=== PATIENT | female | born 1960 | race American Indian/Alaskan Native ===

== ENCOUNTER 2017-10-03 06:30 | Emergency (ER) | payer OTHER ==
--- NOTE | 2017-10-03 07:17 | XRay Report ---
FINAL REPORT PROCEDURE: XR CHEST ROUTINE 2V TECHNIQUE: PA and lateral chest radiographs were obtained. CPT 65949 HISTORY: LYLE COMPARISON: No prior studies are available for comparison. FINDINGS: Heart: Normal. Mediastinum/Vessels: Normal. Lungs/Pleural space: Normal. Bony thorax: No acute osseous abnormality. Other: IMPRESSION: Normal examination.
[2017-10-03 07:23] LABS: Basophils % (Auto) 0.5 % (0.0-1.8); Eosinophils # (Auto) 0.1 K/mm3 (0.0-0.4); Eosinophils % (Auto) 2.2 % (0.0-4.3); Hematocrit 41.1 % (30.3-42.9); Lymphocytes # (Auto) 0.8 K/mm3 (1.2-5.4); Lymphocytes % (Auto) 12.8 % (13.4-35.0); Mean Corpuscular HGB Conc 32 % (30-34); Mean Corpuscular Volume 78 fl (79-97); Monocytes # (Auto) 0.6 K/mm3 (0.0-0.8); Monocytes % (Auto) 10.6 % (0.0-7.3); Platelet Count 116 K/mm3 (140-440); Red Blood Count 5.28 M/mm3 (3.65-5.03); Red Cell Distribution Width 16.4 % (13.2-15.2)
[2017-10-03] MEDS ORDERED: DUONEB *Not for PRN Use IH ONE (07:45)
[2017-10-03] MEDS ORDERED: ZESTRIL PO ONE (07:46)
[2017-10-03 07:48] LABS: BUN/Creatinine Ratio 15; Blood Urea Nitrogen 15 mg/dL (7-17); Calcium 9.7 mg/dL (8.4-10.2); Hemolysis Index 32
--- NOTE | 2017-10-03 07:54 | Emergency Department Report ---
ED General Adult HPI - General Chief complaint: Upper Respiratory Infection Stated complaint: UPPER RESP Time Seen by Provider: 10/03/17 07:00 Source: patient Mode of arrival: Ambulatory Limitations: No Limitations - History of Present Illness Initial comments: 56-year-old female admits to medical noncompliance. She states that she doesn' t have enough money to go to the doctor. She admits that she smokes daily and consumes alcohol. She came here today because she thinks she has bronchitis. He states that her breathing is a bit tight today. She has no inhaler. Her blood pressure was elevated. She ran out of her medications 2 months ago. She does not complain of jacqueline PND but states she likes to sleep in a chair. She states that she has had back pain for several years related to this. She also complains of situational depression without SI or HI. She's had no recent fever. She states that she is no longer coughing. She's had no pleuritic pain. She has not had chest pain per se but just some tightness in breathing. She does not have an inhaler. She's had no pleuritic pain no leg pain or swelling. -: Gradual, month(s), year(s) Consistency: intermittent Improves with: none Worsens with: none Associated Symptoms: cough (nonproductive cough), shortness of breath (dyspnea on exertion). denies: diaphoresis, fever/chills, headaches, loss of appetite, malaise, nausea/vomiting, rash, seizure Treatments Prior to Arrival: none - Related Data Previous Rx's Medication Instructions Recorded Last Taken Type Lisinopril/Hydrochlorothiazide 1 tab PO QDAY #60 tablet 08/01/14 Unknown Rx [Zestoretic 20-25 mg] Aspirin EC [Aspirin Enteric Coated 81 mg PO QDAY #30 tablet.dr 07/26/15 Unknown Rx TAB] Hydrochlorothiazide [HCTZ] 25 mg PO QDAY #30 tablet 07/26/15 Unknown Rx Lisinopril [Zestril TAB] 20 mg PO QDAY #30 tablet 07/26/15 Unknown Rx hydrALAZINE [Apresoline TAB] 50 mg PO Q12HR #60 tab 07/26/15 Unknown Rx Albuterol Sulfate [Ventolin HFA] 2 puff IH Q4H PRN #1 hfa.aer.ad 10/03/17 Unknown Rx Losartan/Hydrochlorothiazide 1 each PO QDAY #1 tablet 10/03/17 Unknown Rx [Losartan-Hctz 50-12.5 mg Tab] Allergies Allergy/AdvReac Type Severity Reaction Status Date / Time No Known Allergies Allergy Unverified 12/07/13 16:07 ED Review of Systems ROS: Stated complaint: UPPER RESP Other details as noted in HPI Constitutional: denies: chills, fever Eyes: denies: eye pain, eye discharge, vision change ENT: denies: ear pain, throat pain Respiratory: cough, shortness of breath, SOB with exertion, wheezing Cardiovascular: as per HPI. denies: chest pain, palpitations Endocrine: no symptoms reported Gastrointestinal: denies: abdominal pain, nausea, diarrhea Genitourinary: denies: urgency, dysuria, discharge Musculoskeletal: denies: back pain, joint swelling, arthralgia Skin: denies: rash, lesions Neurological: denies: headache, weakness, paresthesias Psychiatric: depression (states chronic without acute exacerbation). denies: anxiety Hematological/Lymphatic: denies: easy bleeding, easy bruising ED Past Medical Hx - Past Medical History Previous Medical History?: Yes Hx Hypertension: Yes Additional medical history: Previously abnormal EKG - Surgical History Past Surgical History?: Yes Additional Surgical History: left ankle surgery - Social History Smoking Status: Current Every Day Smoker Substance Use Type: None - Medications Home Medications: Home Medications Medication Instructions Recorded Confirmed Last Taken Type Lisinopril/Hydrochlorothiazide 1 tab PO QDAY #60 tablet 08/01/14 07/26/15 Unknown Rx [Zestoretic 20-25 mg] Aspirin EC [Aspirin Enteric Coated 81 mg PO QDAY #30 tablet.dr 07/26/15 Unknown Rx TAB] Hydrochlorothiazide [HCTZ] 25 mg PO QDAY #30 tablet 07/26/15 Unknown Rx Lisinopril [Zestril TAB] 20 mg PO QDAY #30 tablet 07/26/15 Unknown Rx hydrALAZINE [Apresoline TAB] 50 mg PO Q12HR #60 tab 07/26/15 Unknown Rx Albuterol Sulfate [Ventolin HFA] 2 puff IH Q4H PRN #1 hfa.aer.ad 10/03/17 Unknown Rx Losartan/Hydrochlorothiazide 1 each PO QDAY #1 tablet 10/03/17 Unknown Rx [Losartan-Hctz 50-12.5 mg Tab] ED Physical Exam - General Limitations: No Limitations General appearance: alert, in no apparent distress - Head Head exam: Present: atraumatic, normocephalic - Eye Eye exam: Present: normal appearance - ENT ENT exam: Present: mucous membranes moist - Neck Neck exam: Present: normal inspection - Respiratory Respiratory exam: Present: prolonged expiratory (slight end expiratory rhonchi) . Absent: respiratory distress - Cardiovascular Cardiovascular Exam: Present: regular rate, normal rhythm. Absent: systolic murmur, diastolic murmur, rubs, gallop - GI/Abdominal GI/Abdominal exam: Present: soft, normal bowel sounds. Absent: distended, tenderness, guarding, rebound, rigid - Extremities Exam Extremities exam: Present: normal inspection, normal capillary refill. Absent: calf tenderness - Back Exam Back exam: Present: normal inspection. Absent: CVA tenderness (R), CVA tenderness (L) - Neurological Exam Neurological exam: Present: alert, oriented X3, CN II-XII intact. Absent: motor sensory deficit - Psychiatric Psychiatric exam: Present: normal affect, normal mood - Skin Skin exam: Present: warm, dry, intact, normal color. Absent: rash ED Course Vital Signs 10/03/17 10/03/17 10/03/17 06:33 06:43 07:59 Temperature 98.5 F Pulse Rate 70 65 Pulse Rate [ Throughout] Respiratory Rate [ Throughout] Blood Pressure 187/107 203/104 O2 Sat by Pulse 94 Oximetry 10/03/17 08:03 Temperature Pulse Rate Pulse Rate [ 78 Throughout] Respiratory 16 Rate [ Throughout] Blood Pressure O2 Sat by Pulse Oximetry - Reevaluation(s) Reevaluation #1: Patient's wheezing improved. She states that she is breathing comfortably. She now admits to me that she is on chronic methadone maintenance. She is advised follow-up with primary care. He is appropriate for outpatient management. 10/03/17 08:19 ED Medical Decision Making - Lab Data Result diagrams: 10/03/17 07:04 10/03/17 07:04 Laboratory Results - last 24 hr 10/03/17 10/03/17 10/03/17 07:04 07:04 07:04 WBC 6.1 RBC 5.28 H Hgb 13.0 Hct 41.1 MCV 78 L MCH 25 L MCHC 32 RDW 16.4 H Plt Count 116 L Lymph % (Auto) 12.8 L Preble % (Auto) 10.6 H Eos % (Auto) 2.2 Baso % (Auto) 0.5 Lymph # 0.8 L Preble # 0.6 Eos # 0.1 Baso # 0.0 Seg Neutrophils % 73.9 H Seg Neutrophils # 4.5 Sodium 140 Potassium 4.1 Chloride 102.5 Carbon Dioxide 26 Anion Gap 16 BUN 15 Creatinine 1.0 Estimated GFR > 60 BUN/Creatinine Ratio 15 Glucose 107 H Calcium 9.7 Troponin T < 0.010 NT-Pro-B Natriuret Pep 275.4 - EKG Data -: EKG Interpreted by Mi EKG shows normal: sinus rhythm Rate: normal - EKG Data Interpretation: other (left bundle branch block) - Radiology Data Radiology results: report reviewed (read by the radiologist as normal) Critical care attestation.: If time is entered above; I have spent that time in minutes in the direct care of this critically ill patient, excluding procedure time. ED Disposition Clinical Impression: COPD with exacerbation, Essential hypertension, Thrombocytopenia, Left bundle branch block Disposition: DC-01 TO HOME OR SELFCARE Is pt being admited?: No Does the pt Need Aspirin: No Condition: Stable Instructions: Chronic Obstructive Pulmonary Disease (ED), Hypertension (ED) Additional Instructions: Follow-up with her primary care provider. Return any acute change or problem. Prescriptions: Albuterol Sulfate [Ventolin HFA] 2 puff IH Q4H PRN #1 hfa.aer.ad PRN Reason: Shortness Of Breath Losartan/Hydrochlorothiazide [Losartan-Hctz 50-12.5 mg Tab] 1 each PO QDAY #1 tablet Referrals: CAMRYN PIZANO MD [Primary Care Provider] - 3-5 Days
[2017-10-03 07:55] LABS: Mean Corpuscular Hemoglobin 25 pg (28-32)
[2017-10-03 08:49] VITALS: BP 169/87
== END 2017-10-03 08:46 | disposition home or self-care (01) ==
LOC: ED 06:30
DX: J44.1 Chronic obstructive pulmonary disease with (acute) exacerbation (principal); I44.7 Left bundle-branch block, unspecified; I10 Essential (primary) hypertension; D69.6 Thrombocytopenia, unspecified; F17.200 Nicotine dependence, unspecified, uncomplicated; Z79.899 Other long term (current) drug therapy
CPT/HCPCS: 36415; 71046; 80048; 83880; 84484; 85025; 93005; 93010; 94640

== ENCOUNTER 2018-06-13 08:31 | Emergency (ER) | payer OTHER ==
[2018-06-13 08:45] VITALS: BP 145/88
--- NOTE | 2018-06-13 08:50 | Emergency Department Report ---
ED Rash HPI - HPI Chief Complaint: Skin Rash Stated Complaint: COPD/BP HIGH/RASH ON ARMS/LEGS Time Seen by Provider: 06/13/18 08:47 Rash Symptoms: Yes Itching, No Facial Swelling, No Tongue/Oral Swelling, No Breathing Difficulties, No Choking Sensation, No Wheezing/Dyspnea, No Peeling, No Blistering, No Fever, No Lightheaded, No Malaise, No Myalgias Severity: mild Other History: Patient is a very pleasant 57-year-old -[place] female who comes to the ER today for a medication refill. She is out of her losartan HCTZ. Blood pressure has been elevated over the last couple weeks during which time she has not been taking the medicine. Patient's home is undergoing construction and she is staying with a friend. Since she's been in the home she has noticed a rash that is consistent with bedbugs. It Is on her arms and legs. Patient is ambulatory nontoxic and afebrile. ED Review of Systems ROS: Stated complaint: COPD/BP HIGH/RASH ON ARMS/LEGS Other details as noted in HPI Comment: All other systems reviewed and negative Constitutional: denies: chills Eyes: denies: eye pain ENT: denies: throat pain Respiratory: denies: orthopnea Cardiovascular: denies: orthopnea Endocrine: denies: flushing Gastrointestinal: denies: nausea Genitourinary: denies: urgency Musculoskeletal: denies: back pain Skin: as per HPI, rash Neurological: denies: headache Psychiatric: denies: anxiety Hematological/Lymphatic: denies: easy bleeding ED Past Medical Hx - Past Medical History Hx Hypertension: Yes Additional medical history: Previously abnormal EKG - Surgical History Additional Surgical History: left ankle surgery - Social History Smoking Status: Current Every Day Smoker Substance Use Type: None - Medications Home Medications: Home Medications Medication Instructions Recorded Confirmed Last Taken Type Losartan [Cozaar] 50 mg PO QDAY #30 tablet 06/13/18 Unknown Rx hydroCHLOROthiazide [HCTZ] 25 mg PO QDAY #30 tablet 06/13/18 Unknown Rx Rash Exam - Exam General: Vital signs noted. No distress. Alert and acting appropriately. HEENT: No Periorbital Edema, No Conjuctival Injection, No Chemosis, No Perioral Edema, No Tongue Edema, No Uvular Edema, No Compromised Airway, No Drooling Lungs: Yes Good Air Exchange, No Wheezes, No Ronchi, No Stridor, No Cough, No Labored Respirations, No Retractions, No Use of Accessory Muscles, No Other Abnormal Lung Sounds Heart: Yes Regular, No Murmur Skin: Yes Erythema, No Urticarial Rash (flat red lesions, itchy), No Maculopapular Rash, No Morbilliform rash, No Bulla(e), No Excoriations, No Weeping, No Tenderness, No Edema, No Encrustations, No Other Other: Positive: Abdomen Normal, Neurologic Normal, Musculoskeletal Normal ED Course Vital Signs 06/13/18 08:44 Temperature 98.2 F Pulse Rate 64 Respiratory 18 Rate Blood Pressure 145/88 [Left] O2 Sat by Pulse 100 Oximetry ED Medical Decision Making - Medical Decision Making pt educated on bed bugs out of bp meds dc home with follow up Critical care attestation.: If time is entered above; I have spent that time in minutes in the direct care of this critically ill patient, excluding procedure time. ED Disposition Clinical Impression: Rash, Medication refill Disposition: DC-01 TO HOME OR SELFCARE Is pt being admited?: No Does the pt Need Aspirin: No Condition: Stable Additional Instructions: take bp meds per routine follow up pcp referral below over the counter benadry for itching Referrals: [facility]Outside] - 3-5 Days Time of Disposition: 09:02
== END 2018-06-13 09:13 | disposition home or self-care (01) ==
LOC: ED 08:31
DX: R21 Rash and other nonspecific skin eruption (principal); L29.9 Pruritus, unspecified; I10 Essential (primary) hypertension; F17.200 Nicotine dependence, unspecified, uncomplicated; Z76.0 Encounter for issue of repeat prescription
CPT/HCPCS: 99282

== ENCOUNTER 2018-08-19 12:05 | Outpatient (CLI) | payer OTHER | END 2018-08-19 12:06 | disposition home or self-care (01) | LOC: PF 12:05 | PROVIDERS: ATTEND Internal Medicine | DX: J44.9 Chronic obstructive pulmonary disease, unspecified (principal) | CPT/HCPCS: 94010 ==

== ENCOUNTER 2018-09-01 10:45 | Emergency (ER) | payer SELFPAY ==
--- NOTE | 2018-09-01 10:54 | Emergency Department Report ---
Chief Complaint: High BP Stated Complaint: HBP Time Seen by Provider: 09/01/18 10:52 - HPI History of Present Illness: CO HTN TOOK BP AT CLINIC WAS ELEVATED CO SOB PMH HTN METHADONE COPD RX LOSARTAN HCTZ OUT OF IT NEURO INTACT MSE COMPLETED MSE screening note: Focused history and physical exam performed. Due to findings the following was ordered: ED Disposition for MSE Condition: Stable
[2018-09-01] MEDS ORDERED: CATAPRES ONE (10:59)
[2018-09-01] MEDS ORDERED: CATAPRES PO ONE (11:01)
[2018-09-01] MEDS ORDERED: ASPIRIN PO ONE (11:57)
--- NOTE | 2018-09-01 11:58 | Emergency Department Report ---
ED Chest Pain HPI - General Chief Complaint: High BP Stated Complaint: HBP Time Seen by Provider: 09/01/18 10:52 Source: patient Mode of arrival: Ambulatory Limitations: No Limitations - History of Present Illness Initial Comments: Marta is a 57-year-old who is well-known to us that comes from her methadone clinic with an elevated blood pressure. She states that she didn't miss any medication. However, on further probing she says that she might have missed last week. Then she had she is out of her hydrochlorothiazide. Patient states that she is not using drugs. She is an occasional alcohol drinker and smokes cigarettes. She denies chest pain, shortness of breath or headache. NO COMPLAINTS. CLINIC SENT HER HERE Aspirin use within the Past 7 Days: (0) No - Related Data On Oral Contraceptives: No Previous Rx's Medication Instructions Recorded Last Taken Type Losartan [Cozaar] 50 mg PO QDAY #30 tablet 09/01/18 Unknown Rx hydroCHLOROthiazide [HCTZ] 25 mg PO QDAY #30 tablet 09/01/18 Unknown Rx Allergies Allergy/AdvReac Type Severity Reaction Status Date / Time No Known Allergies Allergy Verified 09/01/18 10:49 Heart Score - HEART Score History: Slightly suspicious EKG: Normal (FOR HER) Age: 45-65 Risk factors: 1-2 risk factors Troponin: < normal limit HEART Score: 2 ED Review of Systems ROS: Stated complaint: HBP Other details as noted in HPI Comment: All other systems reviewed and negative ED Past Medical Hx - Past Medical History Previous Medical History?: Yes Hx Hypertension: Yes Hx COPD: Yes Additional medical history: Previously abnormal EKG- OBESE. 09/06 NO HX DYSPLIPIDEMIA, CAD, OR CVA - Surgical History Past Surgical History?: Yes Additional Surgical History: left ankle surgery - Family History Family history: other (UNKNOWN) - Social History Smoking Status: Current Every Day Smoker Substance Use Type: Alcohol - Medications Home Medications: Home Medications Medication Instructions Recorded Confirmed Last Taken Type Losartan [Cozaar] 50 mg PO QDAY #30 tablet 09/01/18 Unknown Rx hydroCHLOROthiazide [HCTZ] 25 mg PO QDAY #30 tablet 09/01/18 Unknown Rx ED Physical Exam - General Limitations: No Limitations General appearance: alert, in no apparent distress - Head Head exam: Present: normocephalic - Eye Eye exam: Present: normal appearance, PERRL, EOMI - ENT ENT exam: Present: mucous membranes moist - Neck Neck exam: Present: normal inspection, full ROM - Respiratory Respiratory exam: Present: normal lung sounds bilaterally - Cardiovascular Cardiovascular Exam: Present: regular rate - GI/Abdominal GI/Abdominal exam: Present: soft, normal bowel sounds - Rectal Rectal exam: Present: deferred - Extremities Exam Extremities exam: Present: normal inspection, full ROM - Back Exam Back exam: Present: normal inspection, full ROM - Neurological Exam Neurological exam: Present: alert, oriented X3, CN II-XII intact, normal gait, reflexes normal - Psychiatric Psychiatric exam: Present: normal affect, normal mood - Skin Skin exam: Present: warm, dry, intact ED Course Vital Signs 09/01/18 09/01/18 10:58 12:31 Temperature 98.2 F Pulse Rate 53 L 48 L Respiratory 20 20 Rate Blood Pressure 226/106 Blood Pressure 159/99 [Right] O2 Sat by Pulse 98 100 Oximetry - Reevaluation(s) Reevaluation #1: 09/01/18 1330 PT UPDATED ON WHY WE NEEDED TO DO LABS TODAY Reevaluation #2: 09/01/18 14:05 NO RATE LOWERING MEDS SIM score - Sim Score Age > 65: (0) No Aspirin use within the Past 7 Days: (0) No 3 or more CAD Risk Factors: (0) No 2 or more Angina events in past 24 hrs: (0) No Known CAD with more than 50% Stenosis: (0) No Elevated Cardiac Markers: (0) No ST Deviation Greater than 0.5mm: (0) No SIM Score: 0 ED Medical Decision Making - Lab Data Result diagrams: 09/01/18 12:13 09/01/18 12:13 - EKG Data EKG shows normal: sinus rhythm - EKG Data Interpretation: other - Medical Decision Making Labs 09/01/18 09/01/18 12:13 12:13 WBC 4.2 L RBC 5.26 H Hgb 12.9 Hct 40.9 MCV 78 L MCH 25 L MCHC 32 RDW 17.1 H Sodium 139 Potassium 4.1 Chloride 102.9 Carbon Dioxide 25 Anion Gap 15 BUN 11 Creatinine 0.9 Estimated GFR > 60 BUN/Creatinine Ratio 12 Glucose 102 H Calcium 9.1 Troponin T < 0.010 Vital Signs 09/01/18 09/01/18 10:58 12:31 Temperature 98.2 F Pulse Rate 53 L 48 L Respiratory 20 20 Rate Blood Pressure 226/106 Blood Pressure 159/99 [Right] O2 Sat by Pulse 98 100 Oximetry A/C lbbb BUT WITH NO CARDIAC WORK UP LABS NOTED TROP NEG EMR REVIEWED AND NUMEROUS TROPS HAVE ALL BEEN NEG BP TREATED WITH CLONIDINE IN ER RESPONSED TO MED WELL DC HOME WITH DC PLAN OF CARE WHICH INCLUDES A CARDIOLOGY REFERRAL AND WORKUP VSS ON DC AMBULATORY TAKING PO NO CP, SOB, OR HEADACHE; NO FOCAL NEURO DEF Critical care attestation.: If time is entered above; I have spent that time in minutes in the direct care of this critically ill patient, excluding procedure time. ED Disposition Clinical Impression: Abnormal EKG, Hypertension, Non-adherence to medical treatment, Medication refill Disposition: DC-01 TO HOME OR SELFCARE Is pt being admited?: No Does the pt Need Aspirin: No Condition: Stable Instructions: Hypertension (ED) Additional Instructions: LOW FAT DIET AVOID ALCOHOL OR TOBACCO- OR DRUGS MEDS ORDERED TODAY IN ER FOLLOW INSTRUCTIONS ON THE BOTTLE FOLLOW UP PCP WITHIN 48 HOURS TO ENSURE YOU ARE GETTING BETTER REFERRAL BELOW ACTIVITY TOLERATED MOTRIN OR TYLENOL FOR PAIN OR FEVER RETURN TO THE ER FOR WORSENING SYMPTOMS NOT RELIEVED BY YOUR MEDICATIONS. YOUR EKG IS ABNORMAL YOU NEED TO FOLLOW UP WITH CARDIOLOGY MD-- A HEART DOCTOR SEE BELOW Prescriptions: Losartan [Cozaar] 50 mg PO QDAY #30 tablet hydroCHLOROthiazide [HCTZ] 25 mg PO QDAY #30 tablet Referrals: [facility] [Outside] - 3-5 Days KAYA MORENO MD [Staff Physician] - 3-5 Days Time of Disposition: 13:47
[2018-09-01 12:28] LABS: Hematocrit 40.9 % (30.3-42.9); Hemoglobin 12.9 gm/dl (10.1-14.3); Mean Corpuscular HGB Conc 32 % (30-34); Mean Corpuscular Volume 78 fl (79-97); Red Blood Count 5.26 M/mm3 (3.65-5.03); Red Cell Distribution Width 17.1 % (13.2-15.2)
--- NOTE | 2018-09-01 12:29 | XRay Report ---
CHEST XRAY, 2 VIEWS: History: Short of breath. Findings: There is mild cardiomegaly. Heart size appears slightly increased since 10/03/17. Pulmonary vessels are within normal limits. The lungs are clear and fully expanded. No infiltrate, pleural effusion or pneumothorax. Normal thoracic cage. IMPRESSION: Mild cardiomegaly. Lungs clear.
[2018-09-01 12:34] VITALS: BP 159/99
[2018-09-01 12:49] LABS: BUN/Creatinine Ratio 12; Blood Urea Nitrogen 11 mg/dL (7-17); Calcium 9.1 mg/dL (8.4-10.2); Hemolysis Index 10
[2018-09-01 13:59] LABS: Bacteria,Urine 1+ /HPF (Negative); Bilirubin,Urine NEG (Negative); Blood,Urine NEG (Negative); Color,Urine Yellow (Yellow); Mucus,Urine FEW /HPF; Urobilinogen,Urine < 2.0 mg/dL (<2.0)
[2018-09-01 14:06] LABS: Amphetamine Screen,Urine PRESUMPTIVE NEGATIVE; Benzodiazepines Screen,Urine PRESUMPTIVE NEGATIVE; Cannabinoid Screen,Urine PRESUMPTIVE NEGATIVE; Opiate Screen,Urine PRESUMPTIVE NEGATIVE
[2018-09-01 14:17] LABS: Cocaine Screen,Urine PRESUMPTIVE POSITIVE; Methadone Screen,Urine PRESUMPTIVE POSITIVE
[2018-09-01 14:32] LABS: Platelet Count 105 K/mm3 (140-440)
== END 2018-09-01 14:08 | disposition home or self-care (01) ==
LOC: ED 10:45
DX: I10 Essential (primary) hypertension (principal); R94.31 Abnormal electrocardiogram [ECG] [EKG]; Z76.0 Encounter for issue of repeat prescription
CPT/HCPCS: 36415; 71046; 80048; 80307; 81001; 84484; 85027; 93005; 93010

== ENCOUNTER 2018-10-27 08:44 | Emergency (ER) | payer OTHER ==
[2018-10-27] MEDS ORDERED: CATAPRES PO ONE (09:17)
--- NOTE | 2018-10-27 09:33 | Emergency Department Report ---
ED General Adult HPI - General Chief complaint: High BP Stated complaint: HIGH BP/SOB Time Seen by Provider: 10/27/18 09:10 Source: patient Mode of arrival: Ambulatory Limitations: No Limitations - History of Present Illness Initial comments: Patient is a 57-year-old female who has a past medical history of COPD and hypertension who is been out of her medications for the last 10 days. Patient states she takes losartan and hydrochlorothiazide but has been having financial issues and has been unable to afford his medications. Patient also has not seen a physician for refill. Patient states that she does have some mild shortness of breath especially in the mornings with dry cough she attributes this to her COPD. Patient also does not have an inhaler. Patient denies any chest pain decreased urination or focal neurological exams at this time. She has some mild fatigue and decreased energy. - Related Data Previous Rx's Medication Instructions Recorded Last Taken Type ALBUTEROL Inhaler (OR & NICU) 2 puff IH QID PRN #1 inhalation 10/27/18 Unknown Rx [ProAir HFA Inhaler] Losartan [Cozaar] 50 mg PO QDAY #30 tablet 10/27/18 Unknown Rx hydroCHLOROthiazide [HCTZ] 25 mg PO QDAY #30 tablet 10/27/18 Unknown Rx Allergies Allergy/AdvReac Type Severity Reaction Status Date / Time No Known Allergies Allergy Verified 09/01/18 10:49 ED Review of Systems ROS: Stated complaint: HIGH BP/SOB Other details as noted in HPI Comment: All other systems reviewed and negative ED Past Medical Hx - Past Medical History Previous Medical History?: Yes Hx Hypertension: Yes Hx COPD: Yes Additional medical history: Previously abnormal EKG- OBESE. 09/06 NO HX DYSPLIPIDEMIA, CAD, OR CVA - Surgical History Past Surgical History?: Yes Additional Surgical History: left ankle surgery - Social History Smoking Status: Current Every Day Smoker Substance Use Type: None - Medications Home Medications: Home Medications Medication Instructions Recorded Confirmed Last Taken Type ALBUTEROL Inhaler (OR & NICU) 2 puff IH QID PRN #1 inhalation 10/27/18 Unknown Rx [ProAir HFA Inhaler] Losartan [Cozaar] 50 mg PO QDAY #30 tablet 10/27/18 Unknown Rx hydroCHLOROthiazide [HCTZ] 25 mg PO QDAY #30 tablet 10/27/18 Unknown Rx ED Physical Exam - General Limitations: No Limitations General appearance: alert, in no apparent distress - Head Head exam: Present: atraumatic, normocephalic - Eye Eye exam: Present: normal appearance, PERRL, EOMI - ENT ENT exam: Present: mucous membranes moist - Neck Neck exam: Present: normal inspection - Respiratory Respiratory exam: Present: normal lung sounds bilaterally. Absent: respiratory distress, wheezes, rales, rhonchi - Cardiovascular Cardiovascular Exam: Present: regular rate, normal rhythm. Absent: systolic murmur, diastolic murmur, rubs, gallop - GI/Abdominal GI/Abdominal exam: Present: soft, normal bowel sounds. Absent: distended, tenderness, guarding, rebound, rigid - Extremities Exam Extremities exam: Present: normal inspection - Back Exam Back exam: Present: normal inspection - Neurological Exam Neurological exam: Present: alert, oriented X3 - Psychiatric Psychiatric exam: Present: normal affect, normal mood - Skin Skin exam: Present: warm, dry, intact, normal color. Absent: rash ED Course Vital Signs 10/27/18 08:53 Temperature 98.2 F Pulse Rate 58 L Respiratory 18 Rate Blood Pressure 196/105 O2 Sat by Pulse 96 Oximetry ED Medical Decision Making - Medical Decision Making Patient with no evidence of any end organ damage. Patient will be discharged home with refills of her medications. Patient states she just was approved for Medicaid and should be able to afford her medications going forward. Critical care attestation.: If time is entered above; I have spent that time in minutes in the direct care of this critically ill patient, excluding procedure time. ED Disposition Clinical Impression: Hypertensive urgency, Medical non-compliance Disposition: - TO HOME OR SELFCARE Is pt being admited?: No Does the pt Need Aspirin: No Condition: Stable Instructions: Hypertension (ED) Referrals: CHERELLE BLOOM MD [Primary Care Provider] - 3-5 Days Time of Disposition: 09:31
[2018-10-27 10:06] VITALS: BP 187/107
== END 2018-10-27 10:06 | disposition home or self-care (01) ==
LOC: ED 08:44
DX: R05 Cough (principal); R06.02 Shortness of breath; I16.0 Hypertensive urgency; I10 Essential (primary) hypertension; J44.9 Chronic obstructive pulmonary disease, unspecified; F17.200 Nicotine dependence, unspecified, uncomplicated; Z91.19 Patient's noncompliance with other medical treatment and regimen; Z98.890 Other specified postprocedural states